=== PATIENT | male | born 1985 | race Hispanic/Latino ===

== ENCOUNTER 2024-10-30 08:43 | Emergency (ER) | payer BC ==
[2024-10-30 09:14] LABS: Bilirubin Negative (Negative); Blood, Urine Trace (Negative); Clarity Clear (Clear); Glucose, Urine (Dipstick) Negative (Negative); Ketone, Urine Negative (Negative); Leukocyte Negative (Negative); Nitrite Negative (Negative); Protein, Urine (Dipstick) Negative (Neg-Trace); Urobilinogen 0.2 mg/dL (Less than 2); pH, Urine 5.5 (5.0-9.0)
[2024-10-30 09:18] LABS: Specific Gravity, Urine 1.028 (1.002-1.036)
[2024-10-30 09:32] LABS: Bacteria/HPF Rare-Few HPF (None Seen); CAUTI Indications for Culture Dysuria,urgency,freq; RBC/HPF 0-3 HPF (0-3); Squamous Epithelial 0-3 HPF (0-3); WBC/HPF 0-3 HPF (0-3)
[2024-10-30 09:33] LABS: Urine Culture Reflex No No
[2024-10-30 09:35] LABS: MONO NEGATIVE CONTROL ZONE White (Negative) (White); MONO POSITIVE CONTROL Pink Line (Positive) (PINK/RED); Mononucleosis NEGATIVE (NEGATIVE)
[2024-10-30] MEDS ORDERED: methylPREDNISolone Acetate 80 mg (1 mL) VIAL ONE (09:40)
== END 2024-10-30 10:00 | disposition home or self-care (01) ==
LOC: MADERS 08:43
DX: J03.80 Acute tonsillitis due to other specified organisms (principal); B97.89 Other viral agents as the cause of diseases classified elsewhere
CPT/HCPCS: 36415; 81001; 86308; 87081; 87430; 96372; 99283; J1040